=== PATIENT | female | born 1955 | race American Indian/Alaskan Native ===

== ENCOUNTER 2020-11-23 07:06 | Emergency (ER) | payer BC, OTHER ==
[2020-11-23 07:20] VITALS: BP 170/94
--- NOTE | 2020-11-23 08:30 | Cat Scan Report ---
CT head/brain wo con, CT cervical spine wo con INDICATION: fall, head injury. TECHNIQUE: CT head and cervical spine without contrast. All CT scans at this location are performed u sing CT dose reduction for ALARA by means of automated exposure control. COMPARISON: None. 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 No intracranial hemorrhage. No extra axial collection.. No hydrocephalus. No herniation. Sinuses: Paranasal sinuses and mastoid air cells are essentially clear. Orbits: Globes are intact Calvarium: Small hematoma in the posterior scalp. No underlying calvarial fracture. CERVICAL: Alignment: Normal alignment. Vertebrae: There is a sclerotic lesion seen involving the T1 vertebral body with extension into the p edicles. No fracture. Vertebral body heights are preserved. C1 and C2 are congruent. Atlantooccipita l joint is maintained. Spondylolysis: No significant spondylosis. Soft tissues: No prevertebral soft tissue thickening. Additional findings: No significant additional findings. IMPRESSION: 1. No acute intracranial abnormality. 2.No cervical spine fracture. 3. 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 However, sclerotic metastasis is a consideration in this age group. Correlate with clinica l history. Recommend MRI cervical spine with and without contrast. Signer Name: Jose Enrique Merino MD Signed: 11/23/2020 8:25 AM Workstation Name: [id number]
--- NOTE | 2020-11-23 11:02 | Emergency Department Report ---
ED General Adult HPI - General Chief complaint: Fall Stated complaint: FACIAL/HEAD INJURY Time Seen by Provider: 11/23/20 10:47 Source: patient Mode of arrival: Wheelchair Limitations: No Limitations - History of Present Illness Initial comments: The patient presents to the emergency department the chief complaint of neck pain and headache from a fall. Patient states she was walking to her car when she tripped over a concrete pavers in her driveway resulting in her falling hitting her head. Patient denies loss consciousness. The patient denies chest pain, shortness breath, abdominal pain. Patient denies history of seizures -: Sudden Location: head Severity scale (0 -10): 4 Quality: aching Consistency: constant Improves with: none Worsens with: none Associated Symptoms: denies other symptoms Treatments Prior to Arrival: none - Related Data Previous Rx's Medication Instructions Recorded Last Taken Type traMADoL [Ultram] 50 mg PO Q6HR PRN #24 tablet 11/23/20 Unknown Rx Allergies Allergy/AdvReac Type Severity Reaction Status Date / Time doxycycline Allergy Rash Verified 11/23/20 07:20 Penicillins Allergy Rash Verified 11/23/20 07:19 ED Review of Systems ROS: Stated complaint: FACIAL/HEAD INJURY Other details as noted in HPI Constitutional: denies: chills, fever Eyes: denies: eye pain, eye discharge, vision change ENT: denies: ear pain, throat pain Respiratory: denies: cough, shortness of breath, wheezing Cardiovascular: denies: chest pain, palpitations Endocrine: no symptoms reported Gastrointestinal: denies: abdominal pain, nausea, diarrhea Genitourinary: denies: urgency, dysuria, discharge Musculoskeletal: denies: back pain, joint swelling, arthralgia Skin: denies: rash, lesions Neurological: headache. denies: weakness, paresthesias Psychiatric: denies: anxiety, depression Hematological/Lymphatic: denies: easy bleeding, easy bruising ED Past Medical Hx - Social History Smoking Status: Never Smoker - Medications Home Medications: Home Medications Medication Instructions Recorded Confirmed Last Taken Type traMADoL [Ultram] 50 mg PO Q6HR PRN #24 tablet 11/23/20 Unknown Rx ED Physical Exam - General Limitations: No Limitations General appearance: alert, in no apparent distress - Head Head exam: Present: atraumatic, normocephalic - Eye Eye exam: Present: normal appearance, PERRL, EOMI - ENT ENT exam: Present: mucous membranes moist, other (Abrasion to inferior lip) - Neck Neck exam: Present: tenderness (Tenderness to palpation midline C-spine) - Respiratory Respiratory exam: Present: normal lung sounds bilaterally. Absent: respiratory distress - Cardiovascular Cardiovascular Exam: Present: regular rate, normal rhythm. Absent: systolic murmur, diastolic murmur, rubs, gallop - GI/Abdominal GI/Abdominal exam: Present: soft, normal bowel sounds. Absent: distended, tenderness - Extremities Exam Extremities exam: Present: normal inspection - Back Exam Back exam: Present: normal inspection - Neurological Exam Neurological exam: Present: alert, oriented X3, CN II-XII intact. Absent: motor sensory deficit - Psychiatric Psychiatric exam: Present: normal affect, normal mood - Skin Skin exam: Present: warm, dry, intact, normal color. Absent: rash ED Course Vital Signs 11/23/20 11/23/20 07:17 07:20 Temperature 98.5 F Pulse Rate 90 Respiratory 16 Rate Blood Pressure 170/94 [Right] O2 Sat by Pulse 96 Oximetry ED Medical Decision Making - Radiology Data Radiology results: report reviewed - Medical Decision Making Discussed CT results with the patient Critical care attestation.: If time is entered above; I have spent that time in minutes in the direct care of this critically ill patient, excluding procedure time. ED Disposition Clinical Impression: Fall, Abrasion, Closed head injury, Neck strain Disposition: TO HOME OR SELFCARE Is pt being admited?: No Does the pt Need Aspirin: No Condition: Stable Instructions: Head Injury, Adult, [id number], Cervical Sprain, Fall Prevention in the Home, Adult, [id number] Additional Instructions: Return if worse Referrals: FLACO DE LA ROSA MD [Primary Care Provider] - 3-5 Days Time of Disposition: 11:01
== END 2020-11-23 11:57 | disposition home or self-care (01) ==
LOC: ED 07:06
DX: S09.90XA Unspecified injury of head, initial encounter (principal); S16.1XXA Strain of muscle, fascia and tendon at neck level, initial encounter; Z79.899 Other long term (current) drug therapy; Z88.0 Allergy status to penicillin; Z88.8 Allergy status to other drugs, medicaments and biological substances; W01.0XXA Fall on same level from slipping, tripping and stumbling without subsequent striking against object, initial encounter; Y93.89 Activity, other specified; Y92.89 Other specified places as the place of occurrence of the external cause; Y99.8 Other external cause status
CPT/HCPCS: 70450; 72125